=== PATIENT | female | born 1980 ===

== ENCOUNTER 2018-10-12 05:50 | Day surgery (SDC) | payer OTHER | END 2018-10-12 11:25 | disposition home or self-care (01) | LOC: CIR.AMB 05:50 | PROVIDERS: Plastic Surgery | PROC: 0H0V0KZ Alteration of Bilateral Breast with Nonautologous Tissue Substitute, Open Approach (ICD-10-PCS; principal; 2018-10-12 13:30) | DX: N64.81 Ptosis of breast (principal) ==